=== PATIENT | female | born 1995 | race Caucasian/White ===

== ENCOUNTER 2020-09-28 11:00 | Inpatient (IN) ==
[2020-09-28] MEDS ORDERED: Metoclopramide 10 MG/2 ML VIAL IVP PRN (11:38)
[2020-09-28] MEDS ORDERED: *HR* Nalbuphine 10 MG/ML AMPUL IV PRN (11:38)
[2020-09-28] MEDS ORDERED: Famotidine 20 MG/2 ML VIAL IVP PRN (11:38)
[2020-09-28] MEDS ORDERED: Naloxone 0.4 MG/ML INJ IVP PRN (11:38)
[2020-09-28] MEDS ORDERED: Ondansetron 4 MG/2 ML VIAL IVP PRN (11:38)
[2020-09-28] MEDS ORDERED: Ringers Solution, Lactated 1,000 ML IVC SCH (11:45)
[2020-09-28] MEDS ORDERED: Oxytocin 20 units/ LR 1000 mL 20 UNIT/1,000 ML BAG IVC SCH ×3 (11:45→20:28)
[2020-09-28 12:16] LABS: Basophils # 0.1 K/mcL (0.0-0.2); Basophils % 0.4 %; Eosinophils # 0.2 K/mcL (0.0-0.6); Eosinophils % 1.7 %; Hematocrit 35.3 % (35.3-44.9); Hemoglobin 11.9 g/dL (11.5-15.4); Immature Granulocytes % 1.5 % (0-4); Lymphocytes # 1.9 K/mcL (0.6-4.6); Lymphocytes % 14.4 %; Mean Corpuscular HGB Conc 33.7 g/dL (31.6-35.5); Mean Corpuscular Hemoglobin 29.2 pg (28.0-33.3); Mean Corpuscular Volume 86.7 fL (83.0-100.0); Mean Platelet Volume 10.2 fL (9.4-12.4); Monocytes # 0.6 K/mcL (0.0-1.3); Monocytes % 4.7 %; Neutrophils # 9.9 K/mcL (1.6-8.9); Platelet Count 190 K/mcL (140-400); Red Blood Count 4.07 M/mcL (3.82-4.97); Red Cell Distribution Width 12.7 % (11.5-14.5); Segmented Neutrophils % 77.3 %; White Blood Count 12.9 K/mcL (4.3-11.1)
[2020-09-28 12:47] LABS: Influenza A PCR Negative (Negative); Influenza B PCR Negative (Negative); Resp. Syncytial Virus PCR Negative (Negative)
[2020-09-28 13:00] LABS: SARS-CoV-2 by PCR (In House) Negative (Negative)
[2020-09-28 13:23] LABS: Amphetamine Screen,Urine Negative ng/mL (Cutoff=1000); Barbiturate Screen,Urine Negative ng/mL (Cutoff=200); Benzodiazepines Screen,Urine Negative ng/mL (Cutoff=200); Cannabinoid Screen,Urine Negative ng/mL (Cutoff = 50); Cocaine Screen,Urine Negative ng/mL (Cutoff= 300); Opiate Screen,Urine Negative ng/mL (Cutoff=300); Phencyclidine Screen,Urine Negative ng/mL (Cutoff=25)
[2020-09-28] MEDS ORDERED: EPHEDrine 50 MG/ML VIAL IVP PRN (16:37)
[2020-09-28] MEDS ORDERED: Epidural Premix (fent/bupiv) 110 ML EP SCH (16:45)
[2020-09-28] MEDS ORDERED: Acetaminophen 325 MG TABLET PO PRN (20:28)
[2020-09-28] MEDS ORDERED: Oxytocin 20 units/ LR 1000 mL 20 UNIT/1,000 ML BAG IVC ONE (20:28)
[2020-09-28] MEDS ORDERED: Sennosides 8.6 MG TABLET PO PRN (20:28)
[2020-09-28] MEDS ORDERED: Rho Immune Globulin 1,500 UNIT SYRINGE IM PRN (20:28)
[2020-09-28] MEDS ORDERED: Lanolin 7 G OINT...G. TP PRN (20:28)
[2020-09-28] MEDS ORDERED: Measles/Mumps/Rubella Vacc 0.5 ML VIAL SQ PRN (20:28)
[2020-09-28] MEDS ORDERED: Benzocaine/Menthol 56 GM AEROSOL SPRAY TP PRN (20:28)
[2020-09-28] MEDS: Ibuprofen 600 MG TABLET PO PRN (21:27)
[2020-09-29 08:00] VITALS: BP 120/79
[2020-09-29] MEDS: Ibuprofen 600 MG TABLET PO PRN ×2 (08:51→16:33)
[2020-09-29] MEDS ORDERED: Prenatal Vit/FA 1 EACH TABLET PO SCH (09:00)
[2020-09-29 09:03] LABS: Basophils # 0.1 K/mcL (0.0-0.2); Basophils % 0.3 %; Eosinophils # 0.1 K/mcL (0.0-0.6); Eosinophils % 0.6 %; Hematocrit 31.1 % (35.3-44.9); Immature Granulocytes % 1.5 % (0-4); Lymphocytes % 11.6 %; Mean Corpuscular HGB Conc 33.1 g/dL (31.6-35.5); Mean Corpuscular Hemoglobin 29.3 pg (28.0-33.3); Mean Corpuscular Volume 88.4 fL (83.0-100.0); Mean Platelet Volume 10.1 fL (9.4-12.4); Monocytes # 0.8 K/mcL (0.0-1.3); Monocytes % 4.7 %; Neutrophils # 14.2 K/mcL (1.6-8.9); Platelet Count 172 K/mcL (140-400); Red Blood Count 3.52 M/mcL (3.82-4.97); Segmented Neutrophils % 81.3 %; White Blood Count 17.5 K/mcL (4.3-11.1)
[2020-09-29 09:04] LABS: Hemoglobin 10.3 g/dL (11.5-15.4)
== END 2020-09-29 20:15 | disposition home or self-care (01) | DRG 807 ==
LOC: 1NENULAB 11:00 → 1NENUOBS 22:10
PROVIDERS: ADMIT Student in an Organized Health Care Education/Training Program; ATTEND Student in an Organized Health Care Education/Training Program